=== PATIENT | female | born 1990 | race Caucasian/White ===

== ENCOUNTER 2018-03-09 21:41 | Emergency (ER) | payer OTHER ==
[~2018-03-09] VITALS: Ht 165.1 cm; Wt 78.0 kg
[2018-03-09 22:00] VITALS: Ht 165.1 cm; Wt 78.0 kg
[2018-03-09 23:08] LABS: UA SPECIFIC GRAVITY >=1.030 (1.005-1.035); microscopic required? YES; urine erythrocyte TRACE (NEGATIVE)
[2018-03-09 23:11] LABS: BASOPHIL % 0.6 % (0-2); PLATELET COUNT 264 x10^3mcL (130-400)
[2018-03-09 23:16] LABS: CALCIUM 8.4 mg/dL (8.5-10.1); CARBON DIOXIDE 25.9 mmol/L (21-32); CHLORIDE SERUM 101 mmol/L (98-107); CREATININE SERUM 0.9 mg/dL (0.6-1.0); GFR1 > 60 mL/min; GLUCOSE SERUM 87 mg/dL (74-106); SODIUM SERUM 128 mmol/L (136-145)
[2018-03-09 23:17] LABS: AMPHETAMINE QUAL UR NONE DETECTED (See below)
[2018-03-09 23:21] LABS: ALBUMIN 3.6 g/dL (3.4-5.0); ALKALINE PHOSPHATASE 36 U/L (46-116); ALT/SGPT 26 U/L (14-59); AMYLASE 46 U/L (25-115); AST/SGOT 18 U/L (15-37); BILIRUBIN TOTAL 0.44 mg/dL (0.20-1.00); LIPASE 140 IU/L (73-393); TOTAL PROTEIN, SERUM 6.9 g/dL (6.4-8.2)
[2018-03-09 23:49] VITALS: BP 113/67
== END 2018-03-10 00:04 | disposition home or self-care (01) ==
LOC: ED 21:41
PROVIDERS: Emergency Medicine
DX: R10.30 Lower abdominal pain, unspecified (principal); R11.2 Nausea with vomiting, unspecified
CPT/HCPCS: 36415; Q0162